=== PATIENT | male | born 1995 | race Two or more races ===

== ENCOUNTER 2019-11-04 18:51 | Emergency (ER) | payer OTHER, SELFPAY ==
[~2019-11-04] VITALS: Ht 167.6 cm; Wt 75.4 kg
[2019-11-04 19:46] LABS: BASOPHILS # (AUTO) 0.01 x10^3/uL (0-0.1); BASOPHILS % (AUTO) 0 % (0-1); EOSINOPHILS # (AUTO) 0.08 x10^3/uL (0-0.4); EOSINOPHILS % (AUTO) 1 % (1-7); LYMPHOCYTES # (AUTO) 1.25 x10^3/uL (1-3.4); LYMPHOCYTES % (AUTO) 11 % (22-44); MD NO; MEAN CORPUSCULAR HEMOGLOBIN 31.2 pg (27.5-34.5); MEAN CORPUSCULAR HGB CONC 34.4 g/dL (33.2-36.2); MEAN CORPUSCULAR VOLUME 90.7 fL (81-97); MEAN PLATELET VOLUME 7.8 fL (7.4-10.4); MONOCYTES # (AUTO) 0.73 x10^3/uL (0.2-0.8); MONOCYTES % (AUTO) 7 % (2-9); NEUTROPHILS # (AUTO) 9.11 x10^3/uL (1.8-6.8); NEUTROPHILS % (AUTO) 82 % (42-75); PLATELET COUNT 295 x10^3/uL (130-400); RED BLOOD COUNT 5.02 x10^6/uL (4.38-5.82)
[2019-11-04 19:55] LABS: ALANINE AMINOTRANSFERASE 35 U/L (12-78); ALBUMIN 4.3 g/dL (3.4-5.0); ANION GAP 10 mmol/L (5-15); CALCIUM 8.6 mg/dL (8.5-10.1); CHLORIDE 100 mmol/L (98-107); CREATININE 1.01 mg/dL (0.7-1.3)
[2019-11-04 19:57] LABS: ALKALINE PHOSPHATASE 67 U/L (45-117); BILIRUBIN,TOTAL 1.1 mg/dL (0.2-1.0); TOTAL PROTEIN 8.1 g/dL (6.4-8.2)
--- NOTE | 2019-11-04 20:02 | NUR ---
THIS IS A 23 YR OLD MALE HERE AT SUGGESTION OF EMPLOYER TO GET CLEARED FOR WORK. PT HAS C/O LEFT UPPER QUADRANT ABD PAIN DESCRIBED PRESSURE. IS EXPERIENCING NAUSEA. NO ABD SURGERIES AND DENIES MEDICAL HX. PT IN GOWN AND ON NIBP, AND O2 MONITORING.
[2019-11-04] MEDS ORDERED: ONDANSETRON ODT 4 MG ONE (20:25)
[2019-11-04] MEDS ORDERED: ONDANSETRON ODT 4 MG PO ONE (20:30)
[2019-11-04 20:37] VITALS: BP 125/80
--- NOTE | 2019-11-04 21:10 | NUR ---
pt given sprite for po challenge
== END 2019-11-04 21:34 | disposition home or self-care (01) ==
LOC: ED 21:19
DX: E86.0 Dehydration (principal); R10.12 Left upper quadrant pain; R11.2 Nausea with vomiting, unspecified; R10.13 Epigastric pain
CPT/HCPCS: 36415; 80053; 83690; 85025; 99283; Q0162